=== PATIENT | female | born 1940 ===

== ENCOUNTER → 2017-08-06 | Outpatient (REF) ==
[~2017-08-06] MED LIST: ASPIRIN 81M81 MG/TA2 PO; FISH OIL1000 MG PO; OYSCO 500500 M1 PO; PREMARIN VAG42.5 GM VG; SYNTHROID0.088 MG/T PO; VITAMIN D1000 IU PO; ZESTRIL 20MG TA20 MG PO
== END ==
LOC: ZLAB.WCH 16:11
DX: Z01.89 Encounter for other specified special examinations (principal)

== ENCOUNTER → 2018-01-23 | Outpatient (REF) ==
[2018-01-23 17:34] LABS: THYROID STIMULATING HORMONE 1.53 uIU/mL (0.465-4.680)
== END ==
LOC: ZLAB.WCH 16:49
PROVIDERS: Physician Assistant
DX: Z01.89 Encounter for other specified special examinations (principal)